=== PATIENT | female | born 1960 | race African-American/Black ===

== ENCOUNTER 2016-09-04 13:22 | Emergency (ER) | payer OTHER ==
[~2016-09-04] VITALS: Ht 180.3 cm; Wt 89.0 kg
[~2016-09-04 13:22] MED LIST: AMBIEN10 MG OR; B COMPLETE; B-121000 MC1 PO; B-COMPLE7 PO; BIOTEN1; ESTRACE1 MG OR; ESTRADIOL0.5 MG PO; ESTRADIOL1 MG OR; FLEXERIL OR; LORTAB 5/3255 MG PO; MULTIVITAMI1 OR; NAPROSYN500 MG OR; NAPROSYN500 MG PO; OMEGA 31200 MG PO; OMEGA-3 FISH1000 MG PO; PRAVACHOL20 MG OR
[2016-09-04 14:47] LABS: HEMATOCRIT 34.4 % (37.0-47.0); HEMOGLOBIN 11.3 g/dl (12.0-16.0); IMMATURE GRANULOCYTES 0.1 % (0.0-1.0); MEAN CELL VOLUME 84.7 fL CALC (80.0-100.0); MEAN CORPUSCULAR HGB 27.8 pG CALC (26.0-32.0); MEAN CORPUSCULAR HGB CONC 32.8 g/L CALC (32.0-36.0); NEUT# 4.45 thou/uL (2.00-7.15); RED BLOOD COUNT 4.06 mill/uL (4.20-5.60); RED CELL DISTRI WIDTH 14.6 % (11.5-15.5)
[2016-09-04 15:05] LABS: ALBUMIN 4.6 g/dL (3.2-5.0); ALKALINE PHOSPHATASE 58 u/l (38-126); ANION GAP 14 (6-22 (CALC)); BILIRUBIN, TOTAL 0.3 mg/dL (0.0-1.4); BUN 12 mg/dL (7-17); BUN/CREATININE RATIO 17 (12-20 (CALC)); CALCIUM 9.9 mg/dL (8.4-10.2); CARBON DIOXIDE 29 mmol/l (22-30); CHLORIDE 102 mmol/l (95-108); CREATININE 0.7 mg/dL (0.5-1.0); GFR > 60 ML/MIN (>=60 (CALC)); GFR FOR AFR.AMER. > 60 ML/MIN (>=60 (CALC)); GLUCOSE 108 mg/dL (65-105); POTASSIUM 3.9 mmol/l (3.5-5.1); SGOT/AST 21 u/l (14-36); SGPT/ALT 25 u/l (9-52); SODIUM 141 mmol/l (137-146); TOTAL PROTEIN 8.1 g/dL (6.3-8.2)
[2016-09-04] MEDS ORDERED: ASPIRIN 8181 MG PO (15:33)
[2016-09-04 15:42] VITALS: BP 177/100
== END 2016-09-04 15:54 | disposition home or self-care (01) | DRG 313 ==
LOC: ED 13:22
PROVIDERS: Emergency Medicine
DX: R07.9 Chest pain, unspecified (principal); F41.9 Anxiety disorder, unspecified

== ENCOUNTER 2017-10-20 09:13 | Emergency (ER) | payer OTHER ==
[~2017-10-20] VITALS: Ht 180.3 cm; Wt 77.7 kg
[~2017-10-20 09:13] MED LIST changes: -AMBIEN10 MG OR; +AMBIEN10 MG PO; +ASPIRIN 8181 MG PO; -MULTIVITAMI1 OR; +MULTIVITAMI1 PO
[2017-10-20] MEDS ORDERED: PRAVACHOL40 MG PO (09:30)
[2017-10-20] MEDS ORDERED: MEDDOSEPAK PO (09:38)
[2017-10-20] MEDS ORDERED: FLEXERIL PO (09:38)
[2017-10-20] MEDS ORDERED: ULTRAM50 M1 PO (09:38)
[2017-10-20 09:45] VITALS: BP 149/84
== END 2017-10-20 09:45 | disposition home or self-care (01) | DRG 552 ==
LOC: ED 09:13
DX: M51.36 Other intervertebral disc degeneration, lumbar region (principal); M54.5 Low back pain; X50.1XXA Overexertion from prolonged static or awkward postures, initial encounter; Y93.89 Activity, other specified; Y92.009 Unspecified place in unspecified non-institutional (private) residence as the place of occurrence of the external cause

== ENCOUNTER 2018-03-14 11:07 | Emergency (ER) | payer OTHER ==
[~2018-03-14] VITALS: Ht 180.3 cm; Wt 78.0 kg
[~2018-03-14 11:07] MED LIST changes: +FLEXERIL PO; +MEDDOSEPAK PO; +PRAVACHOL40 MG PO; +ULTRAM50 M1 PO
[2018-03-14] MEDS ORDERED: VALTREX1 GM PO (11:33)
[2018-03-14 11:35] VITALS: BP 141/88
== END 2018-03-14 11:35 | disposition home or self-care (01) | DRG 596 ==
LOC: ED 11:07
DX: B02.9 Zoster without complications (principal)

== ENCOUNTER → 2018-07-29 | Outpatient (REF) | payer OTHER ==
[~2018-07-29] MED LIST changes: +VALTREX1 GM PO
== END | disposition home or self-care (01) | DRG 951 ==
LOC: MAMMO 09:35
PROVIDERS: ATTEND Internal Medicine
DX: Z12.31 Encounter for screening mammogram for malignant neoplasm of breast (principal); N95.1 Menopausal and female climacteric states

== ENCOUNTER 2018-11-08 09:07 | Emergency (ER) | payer OTHER ==
[~2018-11-08] VITALS: Ht 180.3 cm; Wt 80.0 kg
[2018-11-08] MEDS ORDERED: ALPRAZOLAM1 MG PO (09:28)
[2018-11-08] MEDS ORDERED: LEXAPRO20 MG PO (09:29)
[2018-11-08] MEDS ORDERED: HYDROXYCHLOR200 M1 PO (09:29)
[2018-11-08] MEDS ORDERED: FLEXERIL PO (09:39)
[2018-11-08] MEDS ORDERED: LORTAB 1010 MG PO (09:39)
[2018-11-08 10:36] LABS: HEMATOCRIT 35.6 % (37.0-47.0); HEMOGLOBIN 11.6 g/dl (12.0-16.0); IMMATURE GRANULOCYTES 0.3 % (0.0-5.0); MEAN CELL VOLUME 85.2 fL CALC (80.0-100.0); MEAN CORPUSCULAR HGB 27.8 pG CALC (26.0-32.0); MEAN CORPUSCULAR HGB CONC 32.6 g/L CALC (32.0-36.0); NEUT# 4.19 thou/uL (2.00-7.15); RED BLOOD COUNT 4.18 mill/uL (4.20-5.60)
[2018-11-08 10:56] LABS: ALBUMIN 4.6 g/dL (3.2-5.0); ALKALINE PHOSPHATASE 65 u/l (38-126); ANION GAP 14 (6-22 (CALC)); BUN 11 mg/dL (7-17); BUN/CREATININE RATIO 20 (12-20 (CALC)); CARBON DIOXIDE 27 mmol/l (22-30); CHLORIDE 102 mmol/l (95-108); CREATININE 0.5 mg/dL (0.5-1.0); GFR > 60 ML/MIN (>=60 (CALC)); GFR FOR AFR.AMER. > 60 ML/MIN (>=60 (CALC)); POTASSIUM 4.2 mmol/l (3.5-5.1); SGOT/AST 24 u/l (14-36); SODIUM 139 mmol/l (137-146); TOTAL PROTEIN 7.7 g/dL (6.3-8.2)
[2018-11-08 10:57] LABS: BILIRUBIN, TOTAL 0.7 mg/dL (0.0-1.4)
[2018-11-08 10:59] VITALS: BP 136/74
== END 2018-11-08 11:05 | disposition home or self-care (01) | DRG 554 ==
LOC: ED 09:07
PROVIDERS: Emergency Medicine
DX: M19.011 Primary osteoarthritis, right shoulder (principal); M75.91 Shoulder lesion, unspecified, right shoulder; I10 Essential (primary) hypertension; M06.9 Rheumatoid arthritis, unspecified

== ENCOUNTER 2019-04-23 13:35 | Emergency (ER) | payer OTHER ==
[~2019-04-23] VITALS: Ht 180.3 cm; Wt 76.0 kg
[~2019-04-23 13:35] MED LIST changes: +ALPRAZOLAM1 MG PO; +HYDROXYCHLOR200 M1 PO; +LEXAPRO20 MG PO; +LORTAB 1010 MG PO
[2019-04-23] MEDS ORDERED: BACTRIM DS1 TAB PO (14:31)
[2019-04-23 15:15] VITALS: BP 137/80
== END 2019-04-23 15:15 | disposition home or self-care (01) | DRG 156 ==
LOC: ED 13:35
DX: Q18.1 Preauricular sinus and cyst (principal)

== ENCOUNTER 2021-06-22 08:23 | Emergency (ER) | payer MEDICARE ==
[~2021-06-22] VITALS: Ht 180.3 cm; Wt 78.9 kg
[~2021-06-22 08:23] MED LIST changes: +BACTRIM DS1 TAB PO
[2021-06-22] MEDS ORDERED: MELOXICAM15 MG PO (09:20)
[2021-06-22] MEDS ORDERED: LIPITOR20 MG PO (09:20)
[2021-06-22] MEDS ORDERED: LO LOESTRIN PO (09:20)
[2021-06-22] MEDS ORDERED: FLEXERIL5 M1 PO (11:01)
[2021-06-22] MEDS ORDERED: ULTRAM50 MG PO (11:01)
[2021-06-22 12:04] VITALS: BP 147/74
== END 2021-06-22 12:09 | disposition home or self-care (01) ==
LOC: ED 08:23
DX: S16.1XXA Strain of muscle, fascia and tendon at neck level, initial encounter (principal); Y93.B1 Activity, exercise machines primarily for muscle strengthening; S39.012A Strain of muscle, fascia and tendon of lower back, initial encounter; W01.0XXA Fall on same level from slipping, tripping and stumbling without subsequent striking against object, initial encounter; Y93.A9 Activity, other involving cardiorespiratory exercise

== ENCOUNTER 2022-05-10 10:11 | Emergency (ER) | payer MEDICARE ==
[~2022-05-10] VITALS: Ht 180.3 cm; Wt 76.6 kg
[~2022-05-10 10:11] MED LIST changes: +FLEXERIL5 M1 PO; +LIPITOR20 MG PO; +LO LOESTRIN PO; +MELOXICAM15 MG PO; +ULTRAM50 MG PO
[2022-05-10 10:20] VITALS: BP 162/86
[2022-05-10 10:30] VITALS: BP 171/101
[2022-05-10 10:45] LABS: HEMATOCRIT 34.4 % (37.0-47.0); HEMOGLOBIN 11.4 g/dl (12.0-16.0); MEAN CELL VOLUME 84.9 fL CALC (80.0-100.0); MEAN CORPUSCULAR HGB 28.1 pG CALC (26.0-32.0); MEAN CORPUSCULAR HGB CONC 33.1 g/dL CAL (32.0-36.0); NEUT# 3.34 thou/uL (2.00-7.15); RED BLOOD COUNT 4.05 mill/uL (4.20-5.60); RED CELL DISTRI WIDTH 14.7 % (11.5-15.5)
[2022-05-10 10:46] LABS: ALBUMIN 4.6 g/dL (3.2-5.0); ALKALINE PHOSPHATASE 52 u/l (38-126); ANION GAP 12 (6-22 (CALC)); BILIRUBIN, TOTAL 0.5 mg/dL (0.0-1.4); BUN 12 mg/dL (8-23); BUN/CREATININE RATIO 18 (12-20 (CALC)); CARBON DIOXIDE 28 mmol/l (22-30); CHLORIDE 105 mmol/l (95-108); CREATININE 0.7 mg/dL (0.5-1.0); GFR FOR AFR.AMER. > 60 ML/MIN (>=60 (CALC)); GFR OTHER RACES > 60 ML/MIN (>=60 (CALC)); POTASSIUM 3.7 mmol/l (3.5-5.1); SGOT/AST 29 u/l (9-36); SODIUM 141 mmol/l (137-146)
[2022-05-10 11:30] VITALS: BP 135/74
[2022-05-10 12:00] VITALS: BP 152/83
[2022-05-10 12:12] VITALS: BP 152/83
== END 2022-05-10 12:25 | disposition home or self-care (01) ==
LOC: ED 10:11
PROVIDERS: Family Medicine
DX: R07.9 Chest pain, unspecified (principal); I10 Essential (primary) hypertension; E78.00 Pure hypercholesterolemia, unspecified; M06.9 Rheumatoid arthritis, unspecified